=== PATIENT | female | born 1960 | race Caucasian/White ===

== ENCOUNTER 2024-02-15 11:39 | Emergency (ER) | payer BC ==
[~2024-02-15] VITALS: Ht 172.7 cm; Wt 96.2 kg
[2024-02-15 12:34] LABS: BASOPHILS # (AUTO) 0.1 X10'3 (0-0.2); BASOPHILS % (AUTO) 0.6 % (0-1); EOSINOPHILS # (AUTO) 0.4 X10'3 (0-0.9); EOSINOPHILS % (AUTO) 3.3 % (0-6); HEMATOCRIT 42.8 % (35.0-45.0); HEMOGLOBIN 14.1 g/dl (12.0-16.0); LYMPHOCYTES # (AUTO) 3.6 X10'3 (1.1-4.8); LYMPHOCYTES % (AUTO) 31.4 % (21-51); MEAN CORPUSCULAR HEMOGLOBIN 27.6 PG (27.0-31.0); MEAN CORPUSCULAR VOLUME 83.8 FL (78-98); MEAN PLATELET VOLUME 7.9 FL (7.4-10.4); MONOCYTES # (AUTO) 0.7 X10'3 (0-0.9); MONOCYTES % (AUTO) 6.2 % (2-12); NEUTROPHILS # (AUTO) 6.8 X10'3 (1.8-7.7); NEUTROPHILS % (AUTO) 58.5 % (42-75); PLATELET COUNT 356 X10'3 (140-440); RED BLOOD COUNT 5.11 X10'6 (4.20-5.60); RED CELL DISTRIBUTION WIDTH 14.1 % (11.5-14.5); WHITE BLOOD COUNT 11.6 X10'3 (4.5-11.0)
[2024-02-15 12:48] LABS: ALANINE AMINOTRANSFERASE 19 U/L (12-78); ALBUMIN 3.6 G/DL (3.4-5.0); ALBUMIN/GLOBULIN RATIO 0.9 (1.1-1.5); ALKALINE PHOSPHATASE 95 IU/L (46-116); ANION GAP 11 (8-16); ASPARTATE AMINO TRANSFERASE 10 U/L (10-37); BILIRUBIN,TOTAL 0.2 MG/DL (0.1-1.0); BLOOD UREA NITROGEN 19 MG/DL (7-18); BUN/CREATININE RATIO 21.1 (10.0-20.0); CALCIUM 8.9 MG/DL (8.5-10.1); CHLORIDE 102 MMOL/L (99-107); GLUCOSE 202 MG/DL (70-104); POTASSIUM 3.9 MMOL/L (3.5-5.1); SODIUM 138 MMOL/L (135-145); TOTAL CARBON DIOXIDE 24.8 MMOL/L (24-32); TOTAL PROTEIN 7.7 G/DL (6.4-8.2); eCRCL 65 ML/MIN; eGFR 63 ML/MIN
[2024-02-15] MEDS: LIDOcaine 1% 30ml preserv. free vial IJ STA (13:10)
[2024-02-15] MEDS: TETanus/Pertussis (Acell)/Diphther VAC/PF (Tdap-Adult) 0.5ml syringe IMVAC ONE (13:10)
[2024-02-15] MEDS ORDERED: SULF1TAB49 PO (13:28)
[2024-02-15] MEDS ORDERED: OXYC-658 PO (13:34)
[2024-02-15] MEDS: bacitracin 15gm ointment TP ONE (13:50)
[2024-02-15 14:11] VITALS: BP 185/85; PULSE 73; RESP 16; TEMP 97; O2SAT 96
== END 2024-02-15 14:16 | disposition home or self-care (01) ==
LOC: ER 11:39
DX: L03.115 Cellulitis of right lower limb (principal); Z91.040 Latex allergy status; Z98.890 Other specified postprocedural states
CPT/HCPCS: 36415; 73630; 80053; 83605; 84145; 85025; 87040; 87070; 90471; 99284; J7030; 90715; A6449

== ENCOUNTER 2024-02-21 11:45 | Emergency (ER) | payer BC ==
[~2024-02-21] VITALS: Ht 172.7 cm; Wt 91.5 kg
[~2024-02-21 11:45] MED LIST: OXYC-658 PO; SULF1TAB49 PO
[2024-02-21 11:49] VITALS: BP 152/82; PULSE 86; RESP 15; TEMP 98.6; O2SAT 98
[2024-02-21] MEDS ORDERED: SULF1TAB48 PO (12:50)
[2024-02-21] MEDS ORDERED: FLUC150T22 PO (12:50)
== END 2024-02-21 12:59 | disposition home or self-care (01) ==
LOC: ER 11:46
DX: L03.115 Cellulitis of right lower limb (principal); Z91.041 Radiographic dye allergy status; Z91.040 Latex allergy status; Z88.1 Allergy status to other antibiotic agents; Z79.1 Long term (current) use of non-steroidal anti-inflammatories (NSAID)
CPT/HCPCS: 99283

== ENCOUNTER 2024-02-29 12:57 | Emergency (ER) | payer BC ==
[~2024-02-29] VITALS: Ht 172.7 cm; Wt 92.9 kg
[~2024-02-29 12:57] MED LIST changes: -OXYC-658 PO; +SULF1TAB48 PO; -SULF1TAB49 PO
[2024-02-29] MEDS: HYDROcodone/acetaminophen 10/325mg tab PO ONE (15:31)
[2024-02-29 15:52] LABS: BASOPHILS # (AUTO) 0.1 X10'3 (0-0.2); BASOPHILS % (AUTO) 1.1 % (0-1); EOSINOPHILS # (AUTO) 0.2 X10'3 (0-0.9); EOSINOPHILS % (AUTO) 2.1 % (0-6); HEMOGLOBIN 13.5 g/dl (12.0-16.0); LYMPHOCYTES # (AUTO) 2.8 X10'3 (1.1-4.8); LYMPHOCYTES % (AUTO) 24.9 % (21-51); MEAN CORPUSCULAR HEMOGLOBIN 27.9 PG (27.0-31.0); MEAN CORPUSCULAR HGB CONC 32.9 g/dL (33.0-36.5); MEAN CORPUSCULAR VOLUME 84.7 FL (78-98); MEAN PLATELET VOLUME 7.8 FL (7.4-10.4); MONOCYTES # (AUTO) 0.6 X10'3 (0-0.9); MONOCYTES % (AUTO) 5.7 % (2-12); NEUTROPHILS # (AUTO) 7.5 X10'3 (1.8-7.7); NEUTROPHILS % (AUTO) 66.2 % (42-75); PLATELET COUNT 383 X10'3 (140-440); RED BLOOD COUNT 4.84 X10'6 (4.20-5.60); RED CELL DISTRIBUTION WIDTH 14.1 % (11.5-14.5); WHITE BLOOD COUNT 11.3 X10'3 (4.5-11.0)
[2024-02-29 16:00] LABS: ALBUMIN 3.3 G/DL (3.4-5.0); ANION GAP 7 (8-16); BLOOD UREA NITROGEN 15 MG/DL (7-18); C-REACTIVE PROTEIN 0.88 MG/DL (0.0-0.5); CALCIUM 8.9 MG/DL (8.5-10.1); CHLORIDE 103 MMOL/L (99-107); CREATININE 0.88 MG/DL (0.40-0.90); GLUCOSE 240 MG/DL (70-104); POTASSIUM 4.2 MMOL/L (3.5-5.1); SODIUM 138 MMOL/L (135-145); TOTAL CARBON DIOXIDE 27.7 MMOL/L (24-32); eCRCL 66 ML/MIN; eGFR 65 ML/MIN
[2024-02-29] MEDS ORDERED: HYDR-3965 PO (16:32)
[2024-02-29] MEDS ORDERED: GABA-530 PO (16:32)
[2024-02-29 16:53] VITALS: BP 186/93; PULSE 67; RESP 16; TEMP 97.9; O2SAT 97
== END 2024-02-29 16:54 | disposition home or self-care (01) ==
LOC: ER 12:58
DX: S91.301D Unspecified open wound, right foot, subsequent encounter (principal); M72.2 Plantar fascial fibromatosis; Z91.041 Radiographic dye allergy status; Z91.040 Latex allergy status; Z88.1 Allergy status to other antibiotic agents; Z79.899 Other long term (current) drug therapy; X58.XXXD Exposure to other specified factors, subsequent encounter
CPT/HCPCS: 36415; 80048; 84145; 85025; 86140; 99283; L4360